=== PATIENT | female | born 1995 | race Caucasian/White ===

== ENCOUNTER 2022-04-02 02:30 | Emergency (ER) | payer BC, OTHER ==
[~2022-04-02] VITALS: Ht 165.1 cm; Wt 86.2 kg
[~2022-04-02 02:30] MED LIST: PERCOCET 5-3251 EACH PO
== END 2022-04-02 04:17 | disposition home or self-care (01) ==
LOC: ED 02:30
DX: O99.891 Other specified diseases and conditions complicating pregnancy (principal); H60.92 Unspecified otitis externa, left ear; H69.82 Other specified disorders of Eustachian tube, left ear; Z3A.16 16 weeks gestation of pregnancy; O99.332 Smoking (tobacco) complicating pregnancy, second trimester; F17.200 Nicotine dependence, unspecified, uncomplicated
CPT/HCPCS: 87880; 99283

== ENCOUNTER 2022-07-03 18:45 | Observation (INO) | payer BC, OTHER ==
[~2022-07-03] VITALS: Ht 162.6 cm; Wt 95.3 kg
[2022-07-03 21:42] VITALS: BP 122/69
--- NOTE | 2022-07-04 12:04 | PR ---
[facility] [address], [place] [address] Signed AP Progress Notes Datetime Report Generated by CPN: 07/04/2022 12:04 Chief Complaint: Feeling well. Baby active. Denies contractions. PHYSICAL EXAM: [id number] General: Normal HEENT: Not Done Neurologic: Not Done Thyroid: Not Done Cardiovascular: Not Done Respiratory: Not Done Breast: Not Done Back: Not Done Abdomen: Abnormal Physical Exam Comments: Abdomen soft, nontender Monitor reassuring for 29 wks, no contractions Impression: 26 yo female s/p fall yesterday. She was admitted for 24 hrs because she did have some contractions but these resolved after hydration. She has done well since then. Plan: Continue 24 hrs monitoring with probable D/C at 1900 VITAL SIGNS: [id number] Vital Signs: Reviewed; Within Normal Limits EXAM: [id number] Dilatation: 0.0 Effacement: 0 Station: -3 Contraction Comments: acontractile MEMBRANES: [id number] FETUS A: [id number] FHR Baseline: 135 Variability: Moderate 6-25bpm Accelerations: 15X15 Deceleration: None FHR Category: Category I FHR Comments: Reactive NST FETUS B: [id number] PROGRESS NOTES: [id number] Signing Physician: Alayna Jones MD *Electronically Signed* 07/04/22 1204 ALAYNA JONES MD PATIENT NAME: NEVILLE MONTANO [facility] PROGRESS NOTE DATE OF : [birth year] PHYSICIAN: ALAYNA JONES MD RPT #: [id number] REPORT IS CONFIDENTIAL AND NOT TO BE RELEASED WITHOUT AUTHORIZATION [address], [place] [address] Signed Copies: ~ *Electronically Signed* 07/04/22 1204 ALAYNA JONES MD PATIENT NAME: NEVILLE MONTANO [facility] PROGRESS NOTE DATE OF : 94 PHYSICIAN: ALAYNA JONES MD RPT #: [id number] REPORT IS CONFIDENTIAL AND NOT TO BE RELEASED WITHOUT AUTHORIZATION
--- NOTE | 2022-07-04 17:12 | PR ---
[facility] [address], [place] [address] Signed AP Progress Notes Datetime Report Generated by CPN: 07/04/2022 17:12 Chief Complaint: Still feeling well. Denies pain, contractions. Baby active. PHYSICAL EXAM: [id number] General: Normal HEENT: Not Done Neurologic: Not Done Thyroid: Not Done Cardiovascular: Not Done Respiratory: Not Done Breast: Not Done Back: Not Done Abdomen: Abnormal Physical Exam Comments: abdomen soft, nontender, gravid Impression: IUP at 29.3 wks s/p fall. No evidence of contractions or compromise. Will complete 24 hrs of obs and D/C if remains stable at that time. Plan: D/C at 1900 assuming no contractions, bleeding, pain, etc VITAL SIGNS: [id number] Vital Signs: Reviewed; Within Normal Limits EXAM: [id number] Dilatation: 0.0 Effacement: 0 Station: -3 Contraction Comments: acontractile MEMBRANES: [id number] Membranes: Intact FETUS A: [id number] FHR Baseline: 135 Variability: Moderate 6-25bpm Accelerations: 15X15 Deceleration: None FHR Category: Category I FHR Comments: Reactive NST FETUS B: [id number] PROGRESS NOTES: [id number] Signing Physician: Alayna Jones MD *Electronically Signed* 07/04/22 1712 ALAYNA JONES MD PATIENT NAME: NEVILLE MONTANO [facility] PROGRESS NOTE DATE OF : 94 PHYSICIAN: ALAYNA JONES MD RPT #: [id number] REPORT IS CONFIDENTIAL AND NOT TO BE RELEASED WITHOUT AUTHORIZATION
== END 2022-07-04 19:00 | disposition home or self-care (01) ==
LOC: FBCO 18:45 → FBC 18:46
PROVIDERS: ADMIT Obstetrics & Gynecology; ATTEND Obstetrics & Gynecology
DX: Z04.3 Encounter for examination and observation following other accident (principal); Z3A.29 29 weeks gestation of pregnancy
CPT/HCPCS: 59025; G0463; J7121

== ENCOUNTER 2022-09-16 21:02 | Emergency (ER) | payer BC, OTHER ==
[~2022-09-16] VITALS: Ht 152.4 cm; Wt 93.9 kg
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
[2022-09-16 23:02] VITALS: BP 139/91
== END 2022-09-16 23:04 | disposition home or self-care (01) ==
LOC: ED 21:02
DX: B34.9 Viral infection, unspecified (principal); Z20.822 Contact with and (suspected) exposure to COVID-19; Z87.891 Personal history of nicotine dependence
CPT/HCPCS: 36415; 80053; 81001; 85025; 87502; 99283; U0002

== ENCOUNTER 2023-07-31 21:19 | Emergency (ER) | payer BC, OTHER ==
[~2023-07-31] VITALS: Ht 152.4 cm; Wt 76.3 kg
[~2023-07-31 21:19] MED LIST changes: +BUSPIRONE HCL10 MG PO; +BUTALB-ACETAMI1 EAC2 PO; +HYDROCODON-ACE1 EA10 PO; +MUPIROCIN22 GM TOP
[2023-07-31 21:50] LABS: BASOPHILS 0.4 % (0-2); EOSINOPHILS 1.6 % (0-6); HEMATOCRIT 38.9 % (35.0-50.0); HEMOGLOBIN 13.2 g/dL (12.0-18.0); LYMPHOCYTES 45.5 % (24-44); MCV 94.3 fl (81-99); MONOCYTES 5.4 % (0-12); NEUTROPHILS 47.1 % (39-80); PLATELET COUNT 286 K/uL (140-440); RBC 4.13 M/ul (4.3-5.7); RDW 13.7 (10.5-15.0)
[2023-07-31] MEDS ORDERED: LACTATED RINGER'S 1,000 ML IV ONE (22:00)
[2023-07-31] MEDS ORDERED: PROCHLORPERAZINE EDISYLATE 10 MG/2 ML VIAL IV ONE (22:00)
[2023-07-31 22:10] LABS: ALBUMIN/GLOBULIN RATIO 1.38 (1.1-2.4); ANION GAP 17.7 (7-21); BILIRUBIN, TOTAL 0.4 ng/dL (0.2-1.0); BUN/CREATININE RATIO 14.01 (6.0-28.6); CALCIUM 8.8 mg/dL (8.5-10.1); CREATININE, SERUM 1.07 mg/dL (0.55-1.02); MAGNESIUM 1.9 mg/dL (1.8-2.4); POTASSIUM 3.7 mmol/L (3.5-5.1); PROTEIN, TOTAL 6.9 g/dL (6.4-8.2)
[2023-07-31] MEDS ORDERED: ONDANSETRON ODT8 MG PO (22:52)
[2023-07-31] MEDS ORDERED: MECLIZINE HCL25 MG PO (22:52)
[2023-07-31] MEDS ORDERED: ONDANSETRON 4 MG HOME.PACK SL ONE (23:00)
[2023-07-31 23:18] VITALS: BP 119/73
== END 2023-07-31 23:21 | disposition home or self-care (01) ==
LOC: ED 21:19
PROVIDERS: Family Medicine
DX: H81.10 Benign paroxysmal vertigo, unspecified ear (principal); Z87.891 Personal history of nicotine dependence
CPT/HCPCS: 36415; 70450; 80053; 83735; 84703; 85025; A9270; J0780; J7121